=== PATIENT | female | born 1950 | race Caucasian/White ===

== ENCOUNTER 2018-03-03 18:35 | Observation (INO) ==
[2018-03-03] MEDS ORDERED: methylPREDNISolone 125 MG/2 ML VIAL IVP ONE (19:00)
[2018-03-03] MEDS ORDERED: Ipratropium/Albuterol Neb 3 ML IH ONE (19:00)
--- NOTE | 2018-03-03 19:02 | Emergency Department Note ---
Disposition Clinical Impression: Bronchitis with bronchospasm, Hypoxia Disposition: Admitted As Inpatient Condition: Fair Referrals: Merced Ambrose CNP [Primary Care Provider] - Forms: ED Satisfaction Letter SOB HPI - General Chief Complaint: ED Weakness Stated Complaint: weakness Time Seen by Provider: 03/03/18 18:53 Source: patient Mode of arrival: private vehicle Limitations: no limitations Nursing Notes Reviewed: Yes Vital Signs Reviewed: Yes - History of Present Illness The patient relates about a week she has had a cough and shortness of breath. Said more dyspnea on exertion today area and she states her cough is productive of some scanty yellow phlegm. She has some soreness in left upper chest with breathing and coughing. She denies fevers or chills. She denies lower extremity swelling or pains. She does get some soreness in the right iliac crest with cough but no other abdominal pain or complaint. She is not having nausea, vomiting, diarrhea or diaphoresis. She denies any ill exposures. She states she has been a smoker for 50 years. She started this evening at urgent care where they performed an EKG is reported to be normal as well as normal chest x-ray. They administered aerosols and noted that her saturations remained around 87-88% prompting her transfer here for further evaluation. She denies any history of previous respiratory trouble including asthma or COPD. Pt Subjective Complaint: shortness of breath, cough Onset (ago): week(s) (1) Context: recent illness Severity: moderate Consistency/Duration: gradually worsening Improves with: rest Worsens with: exertion, movement, coughing Associated symptoms: Reports: pain with inspiration (Left upper chest), cough, wheezing, sputum production. Denies: chest pain (Slight soreness in the left upper chest with cough.), fever, orthopnea, lower extremity pain, polyuria, polydipsia, parasthesias, palpitations, hemoptysis, diaphoresis, nausea/vomiting , syncope, abdominal pain, rash Treatment prior to arrival: oxygen, bronchodilator Cough present: Yes Cough Description: Voluntary, Productive, Moist, Rattling Cough Frequency: Intermittent Sputum production: Yes Sputum Amount: Small Sputum Color: Yellow - Related Data Home oxygen amount: none Home Medications Medication Instructions Recorded Confirmed Allopurinol [Zyloprim 100 MG] 300 mg PO DAILY 12/21/16 03/03/18 Amitriptyline [Elavil] 75 mg PO HS 12/21/16 03/03/18 Simvastatin [Zocor] 20 mg PO HS 12/21/16 03/03/18 Esomeprazole Magnesium [Nexium] 40 mg PO DAILY 12/28/16 03/03/18 Valsartan 80 mg PO DAILY 12/28/16 03/03/18 Venlafaxine HCl [Venlafaxine HCl 150 mg PO DAILY 05/21/17 03/03/18 ER] Allergies Allergy/AdvReac Type Severity Reaction Status Date / Time No Known Allergies Allergy Verified 03/03/18 18:42 All systems ED: reviewed and negative except as stated. Past Medical History - Past Medical History Attestation: Yes The following information was validated with the patient. Source: patient, old records reviewed, nursing notes reviewed Medical history: Reports: asthma (Gout), hyperlipidemia, hypertension, other ( Chronic vertigo). Denies: coronary artery disease, DVT, pulmonary embolus Surgical history: Reports: knee replacement, other (Removal of adrenal gland, removal of cyst from spine, kidney stone removal) Psychiatric history: Reports: anxiety, depression - Social History Smoking Status: Current every day smoker ("For 50 years") Smokeless Tobacco Status: No Alcohol use: Reports: none Drug use: Reports: none Physical Exam - General Limitations: no limitations General appearance: alert, in no apparent distress - Head Head exam: atraumatic, normocephalic, normal inspection - Eye Eye exam: Present: normal appearance, PERRL, EOMI. Absent: scleral icterus, conjunctival injection - ENT ENT exam: normal exam, normal oropharynx, mucous membranes moist - Neck Neck exam: Present: normal inspection, full ROM, trachea midline - Chest Chest inspection: Present: normal inspection, symmetric chest wall rise - Respiratory Respiratory exam: Present: respiratory distress, wheezes, prolonged expiratory phase, other (Patient has a rattling cough.). Absent: stridor, accessory muscle use - Cardiovascular Cardiovascular exam: Present: regular rate, normal rhythm, tachycardia, normal heart sounds - Abdominal Exam Abdominal exam: Present: soft, Non-Tender, normal bowel sounds. Absent: tenderness, distention, guarding, rebound, rigidity - Extremities Exam Extremities exam: Present: normal inspection, full ROM, normal capillary refill. Absent: tenderness, pedal edema, calf tenderness - Expanded Lower Extremity Exam Neurovascular/Tendon exam: Present: normal capillary refill. Absent: motor deficit, sensory deficit, tendon deficit Gait: observed and normal - Back Exam Back exam: Present: normal inspection, full ROM. Absent: tenderness, CVA tenderness (R), CVA tenderness (L) - Neurological Exam Neurological exam: Present: alert, oriented X3, normal gait - Psychiatric Psychiatric exam: Present: normal affect, normal mood - Skin Skin exam: Present: warm, dry, intact, normal color. Absent: cyanosis, diaphoresis, pallor Course Course Narrative: Imaging is reviewed from the urgent care. Follow he was verbally reported to be unremarkable. It does show diffuse bronchial wall thickening consistent with the smoking, bronchitis and asthma. She also had some hyperinflation as would be anticipated with obstructive airway disease. This is consistent with her presentation. With her wheezing, barrel chest and dyspnea with cough she has a classic presentation of COPD. 1929: I discussed the patient's imaging report from the urgent care with the patient and her son. She continues with a wheezy, rhonchorous cough. I have recommended that she stay for further treatment until tomorrow. She is initially resistant but is agreeable. She is written for IV fluids as well as IV Rocephin and azithromycin. I advised the patient and family that we will be awaiting the return of the remainder of the lab tests before I talked to the hospitalist and work towards moving her to an inpatient room. 2019: With elevation of the d-dimer, care is discussed with the patient and family. A CT PE study has been ordered. 2109: With return of CT PE study, Dr. Sparks has been contacted to help coordinate inpatient care of this patient. Vital Signs Temperature 99.8 F H 03/03/18 18:35 Pulse Rate 101 03/03/18 18:35 Respiratory Rate 18 03/03/18 18:35 Blood Pressure 158/80 03/03/18 18:35 O2 Sat by Pulse Oximetry 84 03/03/18 18:35 Temperature 99.8 F H 03/03/18 18:35 Pulse Rate 108 03/03/18 20:17 Respiratory Rate 22 03/03/18 20:17 Blood Pressure 142/80 03/03/18 20:17 O2 Sat by Pulse Oximetry 94 03/03/18 20:17 Oxygen Delivery Oxygen Delivery Nasal Cannula Shortness of Breath/Dyspnea - Differential Diagnosis Likely: acute exacerbation of chronic obstructive airways disease, pneumonia, asthma with exacerbation - Medical Records Medical records reviewed: Yes I reviewed the patient's medical records. XR/XR chest 2V IMPRESSION: Diffuse bronchial wall thickening suggests airway inflammation, such as that seen with asthma, bronchitis smoking. No consolidative pneumonia. Mild pulmonary hyperinflation may indicate underlying obstructive small airways disease. D/ / Francisco Javier Schulz / Francisco Javier Schulz - Lab Data Lab results reviewed: Yes I reviewed the patient's lab results. Result diagrams: 03/03/18 19:00 03/03/18 19:07 Lab Results 03/03/18 03/03/18 03/03/18 Range/Units 19:00 19:07 19:07 WBC 10.5 (4.3-11.1) K/mcL RBC 3.89 (3.82-4.97) M/mcL Hgb 11.5 (11.5-15.4) g/dL Hct 35.5 (35.3-44.9) % MCV 91.3 (83.0-100.0) fL MCH 29.6 (28.0-33.3) pg MCHC 32.4 (31.6-35.5) g/dL RDW 14.9 H (11.5-14.5) % Plt Count 202 (140-400) K/mcL MPV 11.0 (9.4-12.4) fL Immature Gran % 0.5 (0-4) % Seg Neutrophils % 81.4 % Lymphocytes % 9.6 % Monocytes % 7.4 % Eosinophils % 0.8 % Basophils % 0.3 % Neutrophils # 8.5 (1.6-8.9) K/mcL Lymphocytes # 1.0 (0.6-4.6) K/mcL Monocytes # 0.8 (0.0-1.3) K/mcL Eosinophils # 0.1 (0.0-0.6) K/mcL Basophils # 0.0 (0.0-0.2) K/mcL D-Dimer 885 H (0-500) ng/mLFEU Sodium 139 (136-145) mEq/L Potassium 4.0 (3.5-5.1) mEq/L Chloride 102 (98-107) mEq/L Carbon Dioxide 30 H (23-29) mEq/L BUN 10 (8-23) mg/dL Creatinine 0.78 (0.60-1.20) mg/dL Est GFR ( Amer) > 60 (> 60) Est GFR (Non-Af Amer) > 60 (> 60) BUN/Creatinine Ratio 13 (6-26) Glucose 129 H (70-105) mg/dL Calculated Osmolality 289 (280-300) Calcium 9.4 (8.6-10.3) mg/dL B-Natriuretic Peptide (Less than 100) pg/mL 03/03/18 Range/Units 19:07 WBC (4.3-11.1) K/mcL RBC (3.82-4.97) M/mcL Hgb (11.5-15.4) g/dL Hct (35.3-44.9) % MCV (83.0-100.0) fL MCH (28.0-33.3) pg MCHC (31.6-35.5) g/dL RDW (11.5-14.5) % Plt Count (140-400) K/mcL MPV (9.4-12.4) fL Immature Gran % (0-4) % Seg Neutrophils % % Lymphocytes % % Monocytes % % Eosinophils % % Basophils % % Neutrophils # (1.6-8.9) K/mcL Lymphocytes # (0.6-4.6) K/mcL Monocytes # (0.0-1.3) K/mcL Eosinophils # (0.0-0.6) K/mcL Basophils # (0.0-0.2) K/mcL D-Dimer (0-500) ng/mLFEU Sodium (136-145) mEq/L Potassium (3.5-5.1) mEq/L Chloride (98-107) mEq/L Carbon Dioxide (23-29) mEq/L BUN (8-23) mg/dL Creatinine (0.60-1.20) mg/dL Est GFR ( Amer) (> 60) Est GFR (Non-Af Amer) (> 60) BUN/Creatinine Ratio (6-26) Glucose (70-105) mg/dL Calculated Osmolality (280-300) Calcium (8.6-10.3) mg/dL B-Natriuretic Peptide 154 H (Less than 100) pg/mL - Radiology Data Radiology results reviewed: Yes I reviewed the patient's radiology results. Impressions Chest CTA 03/03/18 20:18 IMPRESSION: 1. Patchy pulmonary opacities in tree-in-bud nodularity noted throughout the bilateral lung santos most compatible with infectious/inflammatory etiology such as infectious bronchiolitis or atypical pneumonia. 2. No evidence for pulmonary embolism. 3. Moderate to severe coronary artery atherosclerotic disease. 4. Right adrenal adenoma and partially visualized left adrenal lesion most compatible with large adenoma. D/ / Dung Albarran MD / Dung Albarran MD Interpreting Provider: Dung Albarran MD - EKG Data EKG attestation: Yes I reviewed and interpreted this EKG. EKG shows normal: Reports: sinus rhythm, axis, intervals, QRS complexes, ST-T waves Rate: Reports: normal (94) Interpretation: Reports: no acute changes, normal EKG
[2018-03-03 19:25] LABS: Basophils % 0.3 %; Eosinophils # 0.1 K/mcL (0.0-0.6); Eosinophils % 0.8 %; Hematocrit 35.5 % (35.3-44.9); Hemoglobin 11.5 g/dL (11.5-15.4); Immature Granulocytes % 0.5 % (0-4); Lymphocytes % 9.6 %; Mean Corpuscular HGB Conc 32.4 g/dL (31.6-35.5); Mean Corpuscular Hemoglobin 29.6 pg (28.0-33.3); Mean Corpuscular Volume 91.3 fL (83.0-100.0); Monocytes # 0.8 K/mcL (0.0-1.3); Monocytes % 7.4 %; Neutrophils # 8.5 K/mcL (1.6-8.9); Platelet Count 202 K/mcL (140-400); Red Blood Count 3.89 M/mcL (3.82-4.97); Red Cell Distribution Width 14.9 % (11.5-14.5); Segmented Neutrophils % 81.4 %
[2018-03-03] MEDS ORDERED: Azithromycin 500 MG in D5% in Water 250 ML IVPB ONE (19:33)
[2018-03-03] MEDS ORDERED: cefTRIAXone 2,000 MG in Water for inj. (sterile) 20 ML IVP ONE (19:33)
[2018-03-03] MEDS ORDERED: 0.9 % Sodium Chloride 1,000 ML IVC SCH ×2 (19:45→21:43)
[2018-03-03 20:16] LABS: BUN/Creatinine Ratio 13 (6-26); Blood Urea Nitrogen 10 mg/dL (8-23); Calcium 9.4 mg/dL (8.6-10.3); Carbon Dioxide 30 mEq/L (23-29); Chloride 102 mEq/L (98-107); Glucose 129 mg/dL (70-105); Osmolality,Calculated 289 (280-300); Sodium 139 mEq/L (136-145); eGFR For African Americans > 60 (> 60); eGFR For Non-African Americans > 60 (> 60)
[2018-03-03] MEDS ORDERED: Isovue-370 500 ML INFUS..BTL IV ONE ×2 (20:18→21:43)
[2018-03-03] MEDS ORDERED: Albuterol 2.5 MG/3 ML NEBULIZER IH PRN (21:43)
[2018-03-03] MEDS ORDERED: Naloxone 0.4 MG/ML INJ IVP PRN (21:43)
[2018-03-03] MEDS: Ipratropium/Albuterol Neb 3 ML IH SCH (23:57)
[2018-03-04] MEDS: Ipratropium/Albuterol Neb 3 ML IH SCH ×2 (04:45→10:15)
[2018-03-04] MEDS ORDERED: predniSONE 20 MG TABLET PO SCH (08:00)
[2018-03-04] MEDS ORDERED: Venlafaxine XR (24 HR) 150 MG CAP.ER.24H PO SCH (09:00)
[2018-03-04] MEDS ORDERED: Valsartan 80 MG TABLET PO SCH (09:00)
[2018-03-04 11:52] VITALS: BP 137/73
--- NOTE | 2018-03-04 12:00 | Internal Med History&Physical ---
Date of Encounter: 03/04/18 Time of Encounter: 11:25 Assessment and Plan (1) Pneumonia Current visit: Yes Status: Acute She received Rocephin and Zithromax IV through emergency room orders. She wishes to be discharged home. She will continue with oral antibiotics and probiotic to complete a 7 day course of treatment. Qualifiers: Pneumonia type: due to unspecified organism Laterality: bilateral Lung location: lower lobe of lung Qualified Code(s): J18.1 - Lobar pneumonia, unspecified organism (2) Adrenal adenoma Current visit: Yes Status: Chronic I shared with her the chest CT results which showed bilateral adrenal adenomas. Her PCP can follow up on this and refer as necessary. Qualifiers: Laterality: unspecified laterality Qualified Code(s): D35.00 - Benign neoplasm of unspecified adrenal gland (3) Hypertension Current visit: No Status: Chronic Continue Diovan Qualifiers: Hypertension type: essential hypertension Qualified Code(s): I10 - Essential (primary) hypertension Internal Medicine - H&P: HPI Chief complaint: Dyspnea Admitted From: Emergency Dept Plans for Post Hospital Care: Home History of present illness: Ms. Hebert is a 67 year old female who came to emergency room complaining of dyspnea, cough with minimal productivity, and increased weakness onset approximately one week earlier. She denies nausea vomiting diarrhea or pain. She did not take OTC intervention. She was evaluated in emergency room where chest CT showed bilateral basilar infiltrates and bilateral adrenal adenomas. She was admitted to [facility] floor for ongoing care needs. She states her dyspnea is slightly improved at the present time and she wishes to be discharged home. Her respiratory history is significant for having smoked since age 16 up to one pack per day. She has not had PFTs and does not use home oxygen. She has not been tested for sleep apnea. Past Med Surg Social Fam HX - Past Medical History Medical history: hyperlipidemia, hypertension Psychiatric history: anxiety, depression - Past Surgical History Surgical History: knee replacement - Social History Smoking Status: Current every day smoker Packs per day: 1 Smokeless Tobacco Status: No Alcohol use: none Drug use: none - Family History Mother Living Status: Hx Family Cancer: Yes (Bladder cancer) Father Living Status: Hx Family Cancer: Yes (LIVER) Sister Living Status: Still Living Hx Family Cardiac Disorders: Yes (2 stents) Internal Medicine - H&P: Meds Allopurinol [Zyloprim 100 MG] 300 mg PO DAILY 12/21/16 [History] Amitriptyline [Elavil] 75 mg PO HS 12/21/16 [History] Simvastatin [Zocor] 20 mg PO HS 12/21/16 [History] Esomeprazole Magnesium [Nexium] 40 mg PO DAILY 12/28/16 [History] Valsartan 80 mg PO DAILY 12/28/16 [History] Venlafaxine HCl [Venlafaxine HCl ER] 150 mg PO DAILY 05/21/17 [History] 3 Allergy/AdvReac Type Severity Reaction Status Date / Time No Known Allergies Allergy Verified 03/03/18 18:42 All Systems PM: A 10-system review of systems was performed and is negative for pertinent findings except as documented above in the HPI. Review of systems: Gen.: She states her weight has increased approximately 10 pounds in the past year primarily due to decreased activity from knee pain. Cardiovascular: She has history of hypertension but denies [place] heart failure angina DVT or pulmonary embolus Respiratory: As per history of present illness GI: She has had cholecystectomy. She denies disorders of her liver or exocrine pancreas : She denies hematuria dysuria or kidney stones Neurologic: She states she has chronic vertigo. She denies large distribution strokes or seizures. Endocrine: She has history of hyperlipidemia but denies diabetes or thyroid disease. She reports having left adrenal surgery approximately 2005 with removal of benign adenoma. Hematology/oncology: She denies blood disorders cancers or anemia Psychiatric: She has depression but denies anxiety or other mental health issues [place] skeletal: She has history of gout but denies significant arthritis or other bone joint or muscle disorders. - Constitutional Vitals: Temp Pulse Resp BP Pulse Ox 98.2 F 84 16 137/73 95 03/04/18 11:50 03/04/18 11:50 03/04/18 11:50 03/04/18 11:50 03/04/18 11:50 Exam: Gen.: She is a well-developed well-nourished female who appears in no severe distress at present time HEENT: Head is atraumatic and normocephalic. Eyes: EOMI. There is no scleral icterus. Mouth: Mucosa is moist. Neck: Supple and nontender. There is no thyromegaly or adenopathy noted. Heart: Regular without murmurs gallops or ectopics Lungs: No wheezes or crackles are heard. She has diminished breath sounds diffusely. Abdomen: Soft and nontender. No masses or guarding are noted. Extremities: She is wearing SRINATH hose bilaterally. There is no pitting edema present. She has DJD changes or hands. Neurologic: Mental status: She is talkative and a good historian. Cranial nerves: Smile is symmetric. Forehead wrinkles bilaterally. Tongue protrudes midline. EOMI. Motor: There is no pronator drift. Cerebellar: Finger to nose is intact bilaterally. Skin: Warm and dry Internal Med - H&P Results - Labs CBC & Chem 7: 03/03/18 19:00 03/03/18 19:07 - VTE Documentation of Mechanical Device: Graduated compression elastic hosiery
--- NOTE | 2018-03-04 12:11 | Discharge Summary ---
Date of Encounter: 03/04/18 Time of Encounter: 11:25 - Discharge Diagnosis (1) Pneumonia Priority: Primary Status: Acute Qualifiers: Pneumonia type: due to unspecified organism Laterality: bilateral Lung location: lower lobe of lung Qualified Code(s): J18.1 - Lobar pneumonia, unspecified organism (2) Adrenal adenoma Priority: Secondary Status: Chronic Qualifiers: Laterality: unspecified laterality Qualified Code(s): D35.00 - Benign neoplasm of unspecified adrenal gland (3) Hypertension Priority: Secondary Status: Chronic Qualifiers: Hypertension type: essential hypertension Qualified Code(s): I10 - Essential (primary) hypertension Hospital course: Ms. Hebert is a 67 year old female who came to emergency room complaining of dyspnea, cough with minimal productivity, and increased weakness onset approximately one week earlier. She denies nausea vomiting diarrhea or pain. She did not take OTC intervention. She was evaluated in emergency room where chest CT showed bilateral basilar infiltrates and bilateral adrenal adenomas. She was admitted to [facility] for ongoing care needs. Initial orders were written by the emergency room physician. I saw her on March 04 and performed a history and physical and discharge. She stated she wished to be discharged home. She her had remained afebrile after admission. She will continue antibiotic and probiotic to complete a 7 day course of therapy. I encouraged her strongly to discontinue smoking. Room air oximetry be checked on a 6 minute walk prior to discharge. Her PCP can refer her for further evaluation for the large bilateral adrenal adenomas. - Time Spent with Patient Total time spent providing and/or coordinating discharge services: - Discharge Medications Prescriptions: Cefuroxime PO [Ceftin] 500 mg PO Q12HR #10 tablet Azithromycin [Zithromax] 250 mg PO DAILY #5 tablet Lactobacillus [Culturelle] 1 each PO BID #10 cap.[email or web address] Home Medications: Allopurinol [Zyloprim 100 MG] 300 mg PO DAILY 12/21/16 [History] Amitriptyline [Elavil] 75 mg PO HS 12/21/16 [History] Simvastatin [Zocor] 20 mg PO HS 12/21/16 [History] Esomeprazole Magnesium [Nexium] 40 mg PO DAILY 12/28/16 [History] Valsartan 80 mg PO DAILY 12/28/16 [History] Venlafaxine HCl [Venlafaxine HCl ER] 150 mg PO DAILY 05/21/17 [History] Azithromycin [Zithromax] 250 mg PO DAILY #5 tablet 03/04/18 [Rx] Cefuroxime PO [Ceftin] 500 mg PO Q12HR #10 tablet 03/04/18 [Rx] Lactobacillus [Culturelle] 1 each PO BID #10 cap.sprink 03/04/18 [Rx] Allergies/Adverse Reactions: 3 Allergy/AdvReac Type Severity Reaction Status Date / Time No Known Allergies Allergy Verified 03/03/18 18:42 Date of admission: 03/03/18 21:27 Primary care physician: Merced Ambrose CNP - Constitutional Vitals: Temp Pulse Resp BP Pulse Ox 98.2 F 84 16 137/73 95 03/04/18 11:50 03/04/18 11:50 03/04/18 11:50 03/04/18 11:50 03/04/18 11:50 - Patient Status Disposition: Home, Self-Care Condition: Fair Functional capacity at discharge: independent ambulation Overall status at discharge: patient is progressing back to baseline - Discharge Instructions Follow Up With: Merced Ambrose CNP [Primary Care Provider] - 1 week - Diet and Activity Activity: resume usual activities as tolerated Diet: advance to your usual diet - VTE Documentation of Mechanical Device: Graduated compression elastic hosiery
[2018-03-04] MEDS ORDERED: Azithromycin 500 MG in D5% in Water 250 ML IVPB SCH (18:00)
--- NOTE | 2018-03-06 15:30 | Electrocardiograph Report ---
[address] [address] Test Date: 2018-03-03 Pat Name: Lucille Hebert Department: [id number] Room: [facility] Gender: F Orthopaedic Doctor: Domenico : 1950 Requested By: [id number] Order Number: [id number] Reading MD: Christopher Kellogg Measurements Intervals [place] Rate: 94 P: 57 MD: 147 QRS: 33 QRSD: 74 T: 67 QT: 329 QTc: 381 Interpretive Statements SINUS RHYTHM Electronically Signed On 03-06-2018 15:28:59 EDT by Christopher Kellogg
== END 2018-03-04 14:50 | disposition home or self-care (01) ==
LOC: EMEROOPIK 18:35 → INPPIK 18:35
PROVIDERS: ADMIT Internal Medicine; ATTEND Internal Medicine